=== PATIENT | female | born 1950 | race Caucasian/White ===

== ENCOUNTER 2018-05-05 07:46 | Day surgery (SDC) | payer BC ==
[2018-05-05] VITALS (11 sets, daily range): BP systolic 155–187; BP diastolic 73–95
[~2018-05-05] VITALS: Ht 152.4 cm; Wt 113.9 kg
[2018-05-05] MEDS ORDERED: diphenhydrAMINE 25mg capsule PO PRN (08:05)
[2018-05-05] MEDS ORDERED: sod bicarbonate 150mEq in D5W 1,150 ML IV ONE (08:05)
[2018-05-05] MEDS ORDERED: LOSA25TA96 PO (08:10)
[2018-05-05] MEDS ORDERED: ROSU40TA PO (08:10)
[2018-05-05] MEDS ORDERED: METF500T PO (08:10)
[2018-05-05] MEDS ORDERED: ASPI-1265 PO (08:10)
[2018-05-05] MEDS ORDERED: CLOP75TA15 PO (08:10)
[2018-05-05] MEDS ORDERED: normal saline 1000ml 1,000 ML IV SCH (08:15)
[2018-05-05 08:41] LABS: BASOPHILS % (AUTO) 0.6 % (0-1); EOSINOPHILS # (AUTO) 0.1 X10'3 (0-0.9); EOSINOPHILS % (AUTO) 1.4 % (0-6); HEMATOCRIT 41.6 % (35.0-45.0); HEMOGLOBIN 14.1 g/dl (12.0-16.0); LYMPHOCYTES # (AUTO) 1.5 X10'3 (1.1-4.8); LYMPHOCYTES % (AUTO) 23.8 % (21-51); MEAN CORPUSCULAR HEMOGLOBIN 28.5 PG (27.0-31.0); MEAN CORPUSCULAR HGB CONC 33.8 % (33.0-36.5); MEAN CORPUSCULAR VOLUME 84.6 FL (78-98); MEAN PLATELET VOLUME 10.3 FL (7.4-10.4); MONOCYTES # (AUTO) 0.5 X10'3 (0-0.9); MONOCYTES % (AUTO) 7.5 % (2-12); NEUTROPHILS # (AUTO) 4.2 X10'3 (1.8-7.7); NEUTROPHILS % (AUTO) 66.7 % (42-75); PLATELET COUNT 164 X10'3 (140-440); RED BLOOD COUNT 4.92 X10'6 (4.20-5.60); RED CELL DISTRIBUTION WIDTH 12.7 % (11.5-14.5); WHITE BLOOD COUNT 6.3 X10'3 (4.5-11.0)
[2018-05-05] MEDS ORDERED: fentaNYL/PF 50MCG/1 ML 2ML syringe ONE (08:46)
[2018-05-05] MEDS ORDERED: midazolam 2 mg/2 ml injection ONE ×2 (08:46→09:51)
[2018-05-05] MEDS ORDERED: iohexol 350 MG/ML 50ML vial IV ONE (08:47)
[2018-05-05] MEDS ORDERED: LIDOcaine 1% (10mg/ml)w/preservative injection 20ml MDV ONE (08:47)
[2018-05-05] MEDS ORDERED: iohexol 350MG/ML 100ml bottle IV ONE (08:48)
[2018-05-05 08:52] LABS: ALBUMIN 3.2 G/DL (3.4-5.0); ANION GAP 7 (8-16); BLOOD UREA NITROGEN 15 MG/DL (7-18); CALCIUM 8.8 MG/DL (8.5-10.1); CHLORIDE 102 MMOL/L (99-107); CREATININE 0.94 MG/DL (0.40-0.90); GLUCOSE 368 MG/DL (70-104); MAGNESIUM 1.7 MG/DL (1.5-2.4); POTASSIUM 4.1 MMOL/L (3.5-5.1); SODIUM 137 MMOL/L (135-145); TOTAL CARBON DIOXIDE 27.6 MMOL/L (24-32); eGFR 60 ML/MIN
[2018-05-05] MEDS ORDERED: heparin 1,000unit/ml 10ml vial 10 ML ONE (09:12)
[2018-05-05] MEDS ORDERED: verapamil 2.5 mg/ml inj IV ONE (09:12)
[2018-05-05] MEDS ORDERED: nitroGLYCERIN-Tridil 50MG/D5W 250 ML IV ONE (09:12)
[2018-05-05 09:14] LABS: INR 0.9 INR; PROTHROMBIN TIME 9.6 SECONDS (9.0-12.0)
== END 2018-05-05 13:15 | disposition home or self-care (01) ==
LOC: SSTAY O 07:46
PROVIDERS: ATTEND Internal Medicine Cardiovascular Disease
DX: I25.10 Atherosclerotic heart disease of native coronary artery without angina pectoris (principal); I25.2 Old myocardial infarction; I10 Essential (primary) hypertension; E78.5 Hyperlipidemia, unspecified; E11.42 Type 2 diabetes mellitus with diabetic polyneuropathy; Z85.3 Personal history of malignant neoplasm of breast; Z95.5 Presence of coronary angioplasty implant and graft; Z79.82 Long term (current) use of aspirin; Z90.10 Acquired absence of unspecified breast and nipple; Z79.84 Long term (current) use of oral hypoglycemic drugs; Z90.49 Acquired absence of other specified parts of digestive tract; Z87.891 Personal history of nicotine dependence; Z72.89 Other problems related to lifestyle; Z98.890 Other specified postprocedural states; Z79.899 Other long term (current) drug therapy; Z88.8 Allergy status to other drugs, medicaments and biological substances; Z83.3 Family history of diabetes mellitus; Z80.3 Family history of malignant neoplasm of breast; Z82.49 Family history of ischemic heart disease and other diseases of the circulatory system
CPT/HCPCS: 36415; 80048; 82948; 83735; 85025; 85610; 93005; 93458; 99152; 99153; A6257; J1644; J2001; J2250; J3010; J7030; Q0163; Q9967; A4620; C1769; C1894; J3490

== ENCOUNTER 2024-09-18 12:34 | Emergency (ER) | payer MEDICARE ==
[~2024-09-18] VITALS: Ht 182.9 cm; Wt 102.3 kg
[~2024-09-18 12:34] MED LIST: ASPI-1265 PO; CHOL20002 PO; GABA300C PO; HYDR-3965 PO; LANTUS SQ; LOSA-415 PO; METF500T PO; NAPR-56 PO; ROSU40TA PO
[2024-09-18] MEDS: morphine 4 MG/ML inj SYRINge IV ONE ×2 (15:30→18:33)
[2024-09-18] MEDS: ketorolac trometh 15mg/ml vial 15 MG/ML ML IV ONE (15:30)
[2024-09-18] MEDS: ondansetron/PF 4mg/2ml inj IV ONE (15:30)
[2024-09-18] MEDS: methylPREDNISolone sod succ 125mg/2ml vial IV ONE (20:17)
[2024-09-18 20:47] VITALS: BP 140/81; PULSE 70; O2SAT 97
[2024-09-18] MEDS ORDERED: LIDO700A32 TOP (21:26)
[2024-09-18 21:35] VITALS: RESP 14; TEMP 97.8
== END 2024-09-18 22:30 | disposition home or self-care (01) ==
LOC: ER 12:35
DX: M54.50 Low back pain, unspecified (principal); Z88.6 Allergy status to analgesic agent; Z88.8 Allergy status to other drugs, medicaments and biological substances
CPT/HCPCS: 72148; 82948; 96374; 96375; 96376; 99285; J1885; J2270; J2405; J2919

== ENCOUNTER 2024-09-26 21:39 | Inpatient (IN) | payer MEDICARE ==
[~2024-09-26] VITALS: Ht 182.9 cm; Wt 102.3 kg
[~2024-09-26 21:39] MED LIST changes: +LIDO700A32 TOP
[2024-09-26 21:58] LABS: BASOPHILS # (AUTO) 0.1 X10'3 (0-0.2); BASOPHILS % (AUTO) 0.7 % (0-1); EOSINOPHILS # (AUTO) 0.1 X10'3 (0-0.9); EOSINOPHILS % (AUTO) 1.1 % (0-6); HEMATOCRIT 42.1 % (35.0-45.0); HEMOGLOBIN 14.2 g/dl (12.0-16.0); LYMPHOCYTES # (AUTO) 2.5 X10'3 (1.1-4.8); LYMPHOCYTES % (AUTO) 30.4 % (21-51); MEAN CORPUSCULAR HEMOGLOBIN 27.8 PG (27.0-31.0); MEAN CORPUSCULAR HGB CONC 33.8 g/dL (33.0-36.5); MEAN CORPUSCULAR VOLUME 82.4 FL (78-98); MEAN PLATELET VOLUME 9.7 FL (7.4-10.4); MONOCYTES # (AUTO) 0.8 X10'3 (0-0.9); MONOCYTES % (AUTO) 10.1 % (2-12); NEUTROPHILS # (AUTO) 4.8 X10'3 (1.8-7.7); NEUTROPHILS % (AUTO) 57.7 % (42-75); PLATELET COUNT 183 X10'3 (140-440); RED BLOOD COUNT 5.11 X10'6 (4.20-5.60); RED CELL DISTRIBUTION WIDTH 13.8 % (11.5-14.5); WHITE BLOOD COUNT 8.4 X10'3 (4.5-11.0)
[2024-09-26 22:13] LABS: ALANINE AMINOTRANSFERASE 26 U/L (12-78); ALBUMIN 3.1 G/DL (3.4-5.0); ALBUMIN/GLOBULIN RATIO 0.9 (1.1-1.5); ALKALINE PHOSPHATASE 79 IU/L (46-116); ANION GAP 9 (8-16); ASPARTATE AMINO TRANSFERASE 25 U/L (10-37); BILIRUBIN,TOTAL 0.5 MG/DL (0.1-1.0); BLOOD UREA NITROGEN 30 MG/DL (7-18); BUN/CREATININE RATIO 28.8 (10.0-20.0); CALCIUM 8.7 MG/DL (8.5-10.1); CHLORIDE 108 MMOL/L (99-107); CREATININE 1.04 MG/DL (0.40-0.90); GLUCOSE 146 MG/DL (70-104); POTASSIUM 3.4 MMOL/L (3.5-5.1); SODIUM 141 MMOL/L (135-145); TOTAL CARBON DIOXIDE 23.6 MMOL/L (24-32); TOTAL PROTEIN 6.7 G/DL (6.4-8.2); eCRCL 56 ML/MIN; eGFR 52 ML/MIN
[2024-09-26 22:22] LABS: PRO BRAIN NATRIURETIC PEPTIDE 242 PG/ML (0-125)
[2024-09-26] MEDS: normal saline 1000ml 1,000 ML IV ONE (22:54)
[2024-09-27] VITALS (9 sets, daily range): BP systolic 80–181; BP diastolic 41–89; PULSE 74–87; RESP 14–18; TEMP 97.5–98.4; O2SAT 97–99
[2024-09-27] MEDS: normal saline 1000ml 1,000 ML IV ONE (00:32)
[2024-09-27] MEDS: HYDROcodone/acetaminophen 10/325mg tab PO ONE (01:55)
[2024-09-27] MEDS ORDERED: magnesium sulf-water 2g/50mL 50 ML IV PRN (03:00)
[2024-09-27] MEDS ORDERED: potassium Cl 20 mEq SR tablet PO PRN (03:00)
[2024-09-27] MEDS ORDERED: potassium Cl 40MEQ/1/2NS 520ml 520 ML IV PRN (03:00)
[2024-09-27] MEDS ORDERED: acetaminophen 325mg tablet PO PRN (03:00)
[2024-09-27] MEDS ORDERED: dextrose 50%-water 50ml dispensing syringe IV PRN ×2 (03:00)
[2024-09-27] MEDS ORDERED: magnesium sulf-water 4G/100mL 100 ML IV PRN (03:00)
[2024-09-27] MEDS ORDERED: DEXTROSE 15 GM of carb/4 tabs (each vial/BOTTLE has 4 tablets) PO PRN ×2 (03:00)
[2024-09-27] MEDS ORDERED: mag hydrox/Alum hydrox/simeth 30ml oral suspension PO PRN (03:00)
[2024-09-27] MEDS ORDERED: glucagon, human recombinant 1mg kit SUBCUT PRN (03:00)
[2024-09-27] MEDS ORDERED: NAPR-1144 PO (03:02)
[2024-09-27] MEDS ORDERED: HYDR-3972 PO (03:02)
[2024-09-27] MEDS ORDERED: INSU100I31 SQ (03:02)
[2024-09-27] MEDS ORDERED: MIDO5TAB4 PO (03:02)
[2024-09-27] MEDS ORDERED: ALIR75PE5 SUBCUT (03:02)
[2024-09-27] MEDS ORDERED: CYCL-920 PO (03:02)
[2024-09-27 03:12] LABS: MAGNESIUM 1.5 MG/DL (1.5-2.4)
[2024-09-27 03:19] LABS: HEMOGLOBIN A1C 6.2 % (4.5-6.2)
[2024-09-27] MEDS: CefTRIAXone/D5W-Rocephin 1gm 50 ML IV SCH (03:33)
[2024-09-27] MEDS: normal saline 1000ml 1,000 ML IV SCH (03:34)
[2024-09-27] MEDS: INSULIN LISPRO 100 UNIT/ML INSULN.PEN MULTI-DOSE SQ SCH ×2 (07:00→09:00)
[2024-09-27] MEDS: K and/or MAG REPLACEMENT MC SCH (08:00)
[2024-09-27] MEDS: enoxaparin 40mg/0.4ml syringe SUBCUT SCH (08:16)
[2024-09-27] MEDS: HYDROcodone/acetaminophen 5mg/325mg tablet PO PRN (10:36)
[2024-09-27 13:03] LABS: BILIRUBIN,URINE NEGATIVE (Neg); CLARITY,URINE CLOUDY (Clear); COLOR,URINE YELLOW (Yellow); GLUCOSE, URINE NEGATIVE (Neg); KETONES,URINE TRACE mg/dl (Neg); LEUKOCYTE ESTERASE ,URINE SMALL (Neg); NITRITES, URINE POSITIVE (Neg); OCCULT BLOOD,URINE NEGATIVE (Neg); PROTEIN,URINE NEGATIVE (Neg); UROBILINOGEN,URINE 0.2 E.U/dL (0.2-1.0)
[2024-09-27 13:12] LABS: UA COLLECTION TYPE CLN CATCH MIDSTREAM
[2024-09-27 13:13] LABS: BACTERIA,URINE 4+ /HPF (Neg); RBC,URINE 0-2 /HPF (0-2); SQUAMOUS EPITHELIAL CELL,UR FEW /LPF (FEW); WBC,URINE TNTC /HPF (0-4)
[2024-09-27] MEDS: midodrine 5mg tablet PO SCH (13:45)
[2024-09-27] MEDS: heparin, porcine 5000 units/ml vial SQ SCH (19:35)
[2024-09-27] MEDS ORDERED: insulin glargine (Lantus) pen - multi-dose SQ SCH (21:00)
[2024-09-28] VITALS (7 sets, daily range): BP systolic 53–202; BP diastolic 19–84; PULSE 70–95; RESP 11–18; TEMP 97.3–99.1; O2SAT 96–99
[2024-09-28 05:05] LABS: BASOPHILS # (AUTO) 0.1 X10'3 (0-0.2); EOSINOPHILS # (AUTO) 0.1 X10'3 (0-0.9); EOSINOPHILS % (AUTO) 1.4 % (0-6); HEMATOCRIT 38.5 % (35.0-45.0); LYMPHOCYTES # (AUTO) 1.8 X10'3 (1.1-4.8); LYMPHOCYTES % (AUTO) 30.6 % (21-51); MEAN CORPUSCULAR HEMOGLOBIN 27.9 PG (27.0-31.0); MEAN CORPUSCULAR HGB CONC 33.9 g/dL (33.0-36.5); MEAN CORPUSCULAR VOLUME 82.3 FL (78-98); MEAN PLATELET VOLUME 9.5 FL (7.4-10.4); MONOCYTES # (AUTO) 0.7 X10'3 (0-0.9); MONOCYTES % (AUTO) 12.2 % (2-12); NEUTROPHILS # (AUTO) 3.3 X10'3 (1.8-7.7); NEUTROPHILS % (AUTO) 54.8 % (42-75); PLATELET COUNT 147 X10'3 (140-440); RED BLOOD COUNT 4.67 X10'6 (4.20-5.60); RED CELL DISTRIBUTION WIDTH 13.7 % (11.5-14.5)
[2024-09-28 05:14] LABS: PROTHROMBIN TIME 10.6 SECONDS (9.0-12.0)
[2024-09-28 05:35] LABS: ALANINE AMINOTRANSFERASE 22 U/L (12-78); ALBUMIN 2.9 G/DL (3.4-5.0); ALBUMIN/GLOBULIN RATIO 0.8 (1.1-1.5); ALKALINE PHOSPHATASE 76 IU/L (46-116); ANION GAP 10 (8-16); ASPARTATE AMINO TRANSFERASE 22 U/L (10-37); BILIRUBIN,TOTAL 0.4 MG/DL (0.1-1.0); BLOOD UREA NITROGEN 11 MG/DL (7-18); BUN/CREATININE RATIO 13.4 (10.0-20.0); CALCIUM 8.3 MG/DL (8.5-10.1); CHLORIDE 108 MMOL/L (99-107); CHOL/HDL RATIO 2.4 (0.00-4.99); CHOLESTEROL 95 MG/DL (0-200); CREATININE 0.82 MG/DL (0.40-0.90); GLUCOSE 115 MG/DL (70-104); HDL CHOLESTEROL 39 MG/DL (35-60); LDL CHOLESTEROL 45 MG/DL (50-100); MAGNESIUM 1.3 MG/DL (1.5-2.4); PHOSPHORUS 2.8 MG/DL (2.3-4.5); POTASSIUM 3.4 MMOL/L (3.5-5.1); SODIUM 141 MMOL/L (135-145); TOTAL CARBON DIOXIDE 23.2 MMOL/L (24-32); TOTAL PROTEIN 6.4 G/DL (6.4-8.2); TRIGLYCERIDES 68 MG/DL (20-135); eCRCL 72 ML/MIN; eGFR 69 ML/MIN
[2024-09-28] MEDS: potassium Cl 20 mEq SR tablet PO PRN (05:46)
[2024-09-28] MEDS: magnesium Cl slow-release 64mg tablet PO PRN (05:46)
[2024-09-28] MEDS: aspirin 81mg tab.chew PO SCH (09:02)
[2024-09-28] MEDS: cholecalciferol (vitamin D3) 1,000 unit (25mcg) tablet PO SCH (09:02)
[2024-09-28] MEDS: midodrine 5mg tablet PO SCH (13:47)
[2024-09-28] MEDS: lisinopril 10 MG tablet PO SCH (15:50)
[2024-09-28] MEDS: fludrocortisone acetate 0.1mg tablet PO SCH (15:50)
[2024-09-28] MEDS ORDERED: hyDRALAzine 10mg tablet PO PRN (17:40)
[2024-09-28] MEDS: hydrALAZINE 20mg/ml inj. IV ONE (17:52)
[2024-09-28] MEDS: amLODIPine 5mg tablet PO SCH (17:52)
[2024-09-29] VITALS (10 sets, daily range): BP systolic 72–179; BP diastolic 44–153; PULSE 81–100; RESP 16–18; TEMP 97.4–98.6; O2SAT 94–99
[2024-09-29] MEDS: acetaminophen 325mg tablet PO PRN (04:58)
[2024-09-29 06:17] LABS: BASOPHILS % (AUTO) 0.5 % (0-1); EOSINOPHILS # (AUTO) 0.1 X10'3 (0-0.9); EOSINOPHILS % (AUTO) 1.7 % (0-6); HEMATOCRIT 37.5 % (35.0-45.0); HEMOGLOBIN 12.7 g/dl (12.0-16.0); LYMPHOCYTES # (AUTO) 1.8 X10'3 (1.1-4.8); LYMPHOCYTES % (AUTO) 29.3 % (21-51); MEAN CORPUSCULAR VOLUME 82.4 FL (78-98); MEAN PLATELET VOLUME 9.9 FL (7.4-10.4); MONOCYTES # (AUTO) 0.6 X10'3 (0-0.9); MONOCYTES % (AUTO) 10.5 % (2-12); NEUTROPHILS # (AUTO) 3.6 X10'3 (1.8-7.7); PLATELET COUNT 158 X10'3 (140-440); RED BLOOD COUNT 4.55 X10'6 (4.20-5.60); RED CELL DISTRIBUTION WIDTH 13.8 % (11.5-14.5); WHITE BLOOD COUNT 6.2 X10'3 (4.5-11.0)
[2024-09-29 06:19] LABS: ALANINE AMINOTRANSFERASE 22 U/L (12-78); ALBUMIN 2.8 G/DL (3.4-5.0); ALBUMIN/GLOBULIN RATIO 0.8 (1.1-1.5); ALKALINE PHOSPHATASE 70 IU/L (46-116); ANION GAP 8 (8-16); ASPARTATE AMINO TRANSFERASE 20 U/L (10-37); BILIRUBIN,TOTAL 0.4 MG/DL (0.1-1.0); BLOOD UREA NITROGEN 10 MG/DL (7-18); BUN/CREATININE RATIO 13.9 (10.0-20.0); CALCIUM 8.4 MG/DL (8.5-10.1); CHLORIDE 108 MMOL/L (99-107); CREATININE 0.72 MG/DL (0.40-0.90); GLUCOSE 138 MG/DL (70-104); MAGNESIUM 1.3 MG/DL (1.5-2.4); PHOSPHORUS 2.7 MG/DL (2.3-4.5); POTASSIUM 3.4 MMOL/L (3.5-5.1); SODIUM 140 MMOL/L (135-145); TOTAL PROTEIN 6.2 G/DL (6.4-8.2); eCRCL 82 ML/MIN; eGFR 80 ML/MIN
[2024-09-29] MEDS: cyanocobalamin 500mcg tablet PO SCH (07:50)
[2024-09-29] MEDS: ondansetron/PF 4mg/2ml inj IV PRN (08:01)
[2024-09-29] MEDS: HYDROcodone/acetaminophen 5mg/325mg tablet PO PRN (08:58)
[2024-09-30 04:45] LABS: BASOPHILS % (AUTO) 0.6 % (0-1); EOSINOPHILS # (AUTO) 0.1 X10'3 (0-0.9); EOSINOPHILS % (AUTO) 2.4 % (0-6); HEMATOCRIT 36.4 % (35.0-45.0); HEMOGLOBIN 12.4 g/dl (12.0-16.0); LYMPHOCYTES # (AUTO) 2.1 X10'3 (1.1-4.8); MEAN CORPUSCULAR HGB CONC 34.1 g/dL (33.0-36.5); MEAN CORPUSCULAR VOLUME 82.1 FL (78-98); MEAN PLATELET VOLUME 9.3 FL (7.4-10.4); MONOCYTES # (AUTO) 0.6 X10'3 (0-0.9); MONOCYTES % (AUTO) 10.6 % (2-12); NEUTROPHILS # (AUTO) 2.9 X10'3 (1.8-7.7); NEUTROPHILS % (AUTO) 50.4 % (42-75); PLATELET COUNT 166 X10'3 (140-440); RED BLOOD COUNT 4.44 X10'6 (4.20-5.60); RED CELL DISTRIBUTION WIDTH 13.8 % (11.5-14.5); WHITE BLOOD COUNT 5.8 X10'3 (4.5-11.0)
[2024-09-30 05:06] LABS: ALANINE AMINOTRANSFERASE 22 U/L (12-78); ALBUMIN 2.8 G/DL (3.4-5.0); ALBUMIN/GLOBULIN RATIO 0.8 (1.1-1.5); ALKALINE PHOSPHATASE 73 IU/L (46-116); ANION GAP 5 (8-16); ASPARTATE AMINO TRANSFERASE 15 U/L (10-37); BILIRUBIN,TOTAL 0.3 MG/DL (0.1-1.0); BLOOD UREA NITROGEN 13 MG/DL (7-18); BUN/CREATININE RATIO 14.9 (10.0-20.0); CALCIUM 8.6 MG/DL (8.5-10.1); CHLORIDE 108 MMOL/L (99-107); CREATININE 0.87 MG/DL (0.40-0.90); GLUCOSE 169 MG/DL (70-104); POTASSIUM 4.5 MMOL/L (3.5-5.1); SODIUM 139 MMOL/L (135-145); TOTAL CARBON DIOXIDE 26.1 MMOL/L (24-32); TOTAL PROTEIN 6.1 G/DL (6.4-8.2); eCRCL 67 ML/MIN; eGFR 64 ML/MIN
[2024-09-30 06:00] VITALS: BP 168/70; PULSE 78; RESP 16; TEMP 97.8; O2SAT 99
[2024-09-30] MEDS ORDERED: DEXTROSE 15 GM of carb/4 tabs (each vial/BOTTLE has 4 tablets) PO PRN ×2 (08:00)
[2024-09-30] MEDS ORDERED: dextrose 50%-water 50ml dispensing syringe IV PRN ×2 (08:00)
[2024-09-30] MEDS ORDERED: glucagon, human recombinant 1mg kit SUBCUT PRN (08:00)
[2024-09-30 09:00] VITALS: RESP 16; O2SAT 99
[2024-09-30 10:00] VITALS: BP 144/54; PULSE 84; RESP 17; TEMP 98.1; O2SAT 99
[2024-09-30] MEDS: INSULIN LISPRO 100 UNIT/ML INSULN.PEN MULTI-DOSE SQ SCH (12:00)
[2024-09-30] MEDS ORDERED: insulin glargine (Lantus) pen - multi-dose SQ SCH (21:00)
== END 2024-09-30 13:37 | DRG 280 ==
LOC: ER 21:40 → ED HOLD 09-27 02:17 → ORTHO 4S 09-27 05:03
PROVIDERS: ADMIT Internal Medicine Critical Care Medicine; ATTEND Internal Medicine
DX: I95.1 Orthostatic hypotension (principal); N17.0 Acute kidney failure with tubular necrosis; I21.A1 Myocardial infarction type 2; N39.0 Urinary tract infection, site not specified; E86.0 Dehydration; I25.10 Atherosclerotic heart disease of native coronary artery without angina pectoris; E11.311 Type 2 diabetes mellitus with unspecified diabetic retinopathy with macular edema; I10 Essential (primary) hypertension; R82.71 Bacteriuria; Z90.49 Acquired absence of other specified parts of digestive tract; Z95.5 Presence of coronary angioplasty implant and graft; Z85.3 Personal history of malignant neoplasm of breast; Z74.01 Bed confinement status; Z80.1 Family history of malignant neoplasm of trachea, bronchus and lung
CPT/HCPCS: 36415; 70450; 70544; 70547; 70551; 71045; 80053; 80061; 81001; 82948; 83036; 83605; 83735; 83880; 84100; 84132; 84145; 84484; 85025; 85610; 85651; 87040; 87077; 87081; 87088; 87186; 93005; 93306; 96360; 97110; 97116; 97161; 97530; 99285; G0378; J0360; J0696; J1644; J1650; J1815; J2405; J7030

== ENCOUNTER 2024-12-10 15:27 | Outpatient (CLI) | payer MEDICARE ==
[~2024-12-10 15:27] MED LIST changes: +ALIR75PE5 SUBCUT; +ATOR20TA66 PO; +CYCL-920 PO; -GABA300C PO; -HYDR-3965 PO; +HYDR-3972 PO; +INSU100I31 SQ; -LIDO700A32 TOP; +LOPE-144 PO; -LOSA-415 PO; -METF500T PO; +MIDO5TAB4 PO; +NAPR-1144 PO; -NAPR-56 PO; -ROSU40TA PO; +TICA90TA PO
--- NOTE | 2024-12-10 18:58 | RADIOLOGY REPORT ---
EXAM: MR MRI LOWER EXTREMITY RIGHT INDICATION: PAIN R FOOT TECHNIQUE: Multiplanar, multisequence imaging of the right forefoot without contrast COMPARISON: None FINDINGS: BONES: No MR evidence of an acute fracture, osseous contusion, or aggressive focal osseous lesion. MUSCLES: Mild fatty infiltration along the distal intrinsic interosseous muscles. Mild muscle edema o f the intrinsic musculature of the level of the forefoot most conspicuous involving flexor digitorum brevis (series 5, image 13). TENDONS: Question trace amount of fluid along the distal peroneal longus tendon of the plantar aspect of the foot. Trace amount of fluid at the master knot of Jason. Correlate for trace tenosynovitis. LIGAMENTS: Lisfranc ligamentous complex is grossly intact JOINT SPACES: No joint effusion. NEUROVASCULAR: Normal. OTHER: Surrounding subcutaneous tissue edema IMPRESSION: 1. Mild fatty infiltration along the distal intrinsic interosseous muscles. Mild muscle edema of the intrinsic musculature of the level of the forefoot most conspicuous involving flexor digitorum brevis . 2. Question trace amount of fluid along the distal peroneal longus tendon of the plantar aspect of th e foot. Trace amount of fluid at the master knot of Jason. Correlate for trace tenosynovitis.
== END 2024-12-10 23:59 | disposition home or self-care (01) ==
LOC: MRI02 15:27
PROVIDERS: ATTEND Family Medicine
DX: M79.671 Pain in right foot (principal); R60.0 Localized edema
CPT/HCPCS: 73718; 73719